=== PATIENT | male | born 1965 | race Caucasian/White ===

== ENCOUNTER 2019-01-07 22:15 | Emergency (ER) | payer BC, SELFPAY ==
[2019-01-07 22:16] VITALS: BP 163/95; PULSE 90; RESP 16; TEMP 36.3; O2SAT 95; BMI 32.1
--- NOTE | 2019-01-07 23:24 | ED.DCSUM_ITS ---
- ER Visit Summary Date of Service: 01/07/19 Chief Complaint: Right thigh laceration History of Present Illness: The patient is a 53 M who presents with a laceration to his right thigh that occurred today. Patient states he was mowing when something kicked up and hit him in his right thigh. Patient states this happened earlier this afternoon. Patient does not know what hit him. Patient does not know if there is anything in the wound. Patient states his last tetanus was between 5 and 10 years. Patient denies any paresthesias or weakness. Patient describes the pain as burning and is worse with movement. Physical Examination: Vital signs are stable. Patient is afebrile. Patient is in no acute distress. Skin is warm and dry. There is a 2 cm full-thickness linear laceration of the lateral aspect of the right mid thigh. There is no active bleeding noted. There is some tenderness to palpation over the area. There is moderate gapping of the wound margins. Sensation was intact to light touch bilaterally in the lower extremities. There is full range of motion of t he lower extremities. Test Results: X-rays of the right femur were obtained to rule out foreign body. There is no foreign body. This was interpreted by the radiologist and myself. Emergency Department Course and Treatment: The wound was cleaned and irrigated with copious amounts normal saline. Wound was anesthetized 1% plain lidocaine locally. Wound was closed with 3 simple interrupted #4-0 nylon sutures under sterile technique. Patient tolerated procedure well. Bacitracin dressing was applied. Patient was given a prescription for Keflex. Patient was instructed to follow-up with his primary care physician in 5 to 7 days. Patient understood and was agreeable with the plan. All questions were answered. Disposition: Discharge home Impression: Right thigh laceration This note was generated with [employer] dictation software. It may contain incorrect words, spelling, and punctuation that were not noted in review of the chart prior to signing ED Disposition - Plan for ED Patient: Disposition: Home or Assisted Living Diagnosis: Laceration of right thigh Instructions: LACERATION, Extrem (Suture, Staple or Tape) Referrals: NOT,DEFINED [NON-STAFF] -
--- NOTE | 2019-01-07 23:27 | RAD_ITS ---
STUDY: X-RAY - RIGHT FEMUR REASON FOR STUDY: Male, 53 years old. Laceration after mowing. Something kicked off the mower and hit his leg. TECHNIQUE: 4 view(s) of the femur. COMPARISON: None. FINDINGS: Normal visualized femur. There is no fracture. The hip and knee appear intact. There are vascular calcifications in the inner aspect of the thigh. There is no opaque foreign body. RAD/Femur Min 2 Views IMPRESSION: 1. No acute fracture or dislocation. 2. No opaque foreign body Electronically Signed: Daniel Saul DO at 23:40 EDT Tel [phone], Service support ,
[2019-01-08 01:14] VITALS: RESP 14
== END 2019-01-08 01:15 | disposition home or self-care (01) ==
PROVIDERS: Emergency Provider Emergency Medicine
DX: S71.111A Laceration without foreign body, right thigh, initial encounter (principal); W22.8XXA Striking against or struck by other objects, initial encounter; Y93.H9 Activity, other involving exterior property and land maintenance, building and construction; Z72.0 Tobacco use
CPT/HCPCS: 12001; 73552; 99283